=== PATIENT | female | born 1975 | race African-American/Black ===

== ENCOUNTER 2024-08-15 05:16 | Emergency (ER) | payer BC, OTHER ==
[~2024-08-15] VITALS: Ht 165.1 cm; Wt 81.0 kg
[~2024-08-15 05:16] MED LIST: LEVO50TA PO; MIRA50TA PO
[2024-08-15 05:23] VITALS: O2SAT 99
[2024-08-15 05:24] VITALS: BP 100/43; PULSE 100; RESP 18; TEMP 36.9; O2SAT 100
[2024-08-15 05:51] LABS: BASOPHILS % 0.6 % (0.0-2.0); DIFFERENTIAL COMMENT 0; EOSINOPHILS % 0.2 % (0.0-5.0); HEMATOCRIT. 23.7 % (36.0-48.0); LYMPHOCYTES % 12.8 % (20.0-50.0); MEAN CORPUSCULAR HEMOGLOBIN 34.1 pg (28.0-32.0); MEAN CORPUSCULAR HGB CONC 33.7 g/dL (31.0-37.0); MEAN CORPUSCULAR VOLUME 101.3 fL (81.0-99.0); MEAN PLATELET VOLUME 8.5 fl (7.4-10.4); MONOCYTES % 10.3 % (2.0-8.0); NEUTROPHILS % 76.1 % (40.0-76.0); PLATELET 325 x1000/uL (130-400); RED BLOOD CELL COUNT 2.34 mill/uL (4.2-5.4); RED CELL DISTRIBUTION WIDTH 16.2 % (11.6-14.6); WHITE BLOOD COUNT 11.9 x1000/uL (4.5-11.0)
[2024-08-15 06:10] LABS: CHLORIDE 101 mEq/L (98-107); POTASSIUM 3.8 mEq/L (3.5-5.1); SODIUM 136 mEq/L (136-145)
[2024-08-15 06:12] LABS: CALCIUM 7.9 mg/dL (8.7-10.4); CARBON DIOXIDE 26 mEq/L (21-32)
[2024-08-15 06:17] LABS: CREATININE 1.3 mg/dL (0.6-1.0); GLUCOSE 89 mg/dL (70-105); UREA NITROGEN BLOOD 17 mg/dL (9-23)
[2024-08-15 06:19] LABS: ALANINE AMINOTRANSFERASE 33 IU/L (10-49); ALBUMIN 2.7 g/dL (3.2-4.8); ASPARTATE AMINOTRANSFERASE 155 IU/L (<34); BILIRUBIN DIRECT 2.3 mg/dL (<=3.0)
[2024-08-15 06:20] LABS: BILIRUBIN TOTAL 3.7 mg/dL (0.1-1.0); PROTEIN TOTAL 6.3 g/dL (6.0-8.3)
[2024-08-15 08:30] VITALS: TEMP 97.7
[2024-08-15] MEDS: BENZONATATE 100MG CAPSULE PO ONE (08:30)
[2024-08-15] MEDS: ACETAMINOPHEN 325MG TABLET PO ONE (08:30)
[2024-08-15] MEDS ORDERED: ALBU90AE INH (09:23)
== END 2024-08-15 09:45 | disposition home or self-care (01) ==
LOC: ER 05:16
DX: R10.9 Unspecified abdominal pain (principal); R05.9 Cough, unspecified; E03.9 Hypothyroidism, unspecified; E11.9 Type 2 diabetes mellitus without complications; Z88.5 Allergy status to narcotic agent; Z98.84 Bariatric surgery status; Z98.890 Other specified postprocedural states
CPT/HCPCS: 36415; 71045; 80048; 80076; 85025; 99284

== ENCOUNTER 2024-08-21 04:29 | Emergency (ER) | payer BC, OTHER ==
[~2024-08-21] VITALS: Ht 165.1 cm; Wt 86.3 kg
[~2024-08-21 04:29] MED LIST changes: +ALBU90AE INH
[2024-08-21 04:42] VITALS: O2SAT 100
[2024-08-21 05:31] LABS: BASOPHILS % 0.8 % (0.0-2.0); EOSINOPHILS % 0.7 % (0.0-5.0); HEMATOCRIT. 25.7 % (36.0-48.0); HEMOGLOBIN. 8.8 g/dL (12.0-16.0); LYMPHOCYTES % 17.4 % (20.0-50.0); MEAN CORPUSCULAR HEMOGLOBIN 34.1 pg (28.0-32.0); MEAN CORPUSCULAR HGB CONC 34.2 g/dL (31.0-37.0); MEAN CORPUSCULAR VOLUME 99.7 fL (81.0-99.0); MEAN PLATELET VOLUME 7.6 fl (7.4-10.4); MONOCYTES % 8.1 % (2.0-8.0); PLATELET 514 x1000/uL (130-400); RED BLOOD CELL COUNT 2.58 mill/uL (4.2-5.4); RED CELL DISTRIBUTION WIDTH 16.8 % (11.6-14.6); WHITE BLOOD COUNT 8.2 x1000/uL (4.5-11.0)
[2024-08-21 05:49] LABS: CHLORIDE 105 mEq/L (98-107); POTASSIUM 3.5 mEq/L (3.5-5.1); SODIUM 142 mEq/L (136-145)
[2024-08-21 05:50] LABS: CARBON DIOXIDE 27 mEq/L (21-32)
[2024-08-21 05:51] LABS: CALCIUM 8.3 mg/dL (8.7-10.4)
[2024-08-21 05:55] LABS: CREATININE 1.2 mg/dL (0.6-1.0); GLUCOSE 77 mg/dL (70-105); UREA NITROGEN BLOOD 13 mg/dL (9-23)
[2024-08-21 05:57] LABS: ALANINE AMINOTRANSFERASE 28 IU/L (10-49); ALBUMIN 2.8 g/dL (3.2-4.8); ASPARTATE AMINOTRANSFERASE 94 IU/L (<34)
[2024-08-21 05:58] LABS: BILIRUBIN DIRECT 1.2 mg/dL (<=3.0); BILIRUBIN TOTAL 2.4 mg/dL (0.1-1.0); PROTEIN TOTAL 7.2 g/dL (6.0-8.3)
[2024-08-21 06:21] LABS: TROPONIN I HIGH SENSITIVITY < 4 ng/L (3.0-34)
[2024-08-21] MEDS: IBUPROFEN 400MG TABLET PO ONE (06:23)
[2024-08-21 08:36] LABS: CLARITY URINE TURBID (CLEAR); COLOR URINE DARK YELLOW (YELLOW); GLUCOSE URINE NEGATIVE (NEGATIVE); KETONES URINE TRACE (NEGATIVE); LEUKOCYTE ESTERASE URINE 2+ (NEGATIVE); NITRITE URINE POSITIVE (NEGATIVE); OCCULT BLOOD URINE 3+ (NEGATIVE); PH URINE 5.5 (4.5-8.0); PROTEIN URINE 2+ (NEGATIVE); SPECIFIC GRAVITY URINE 1.025 (1.005-1.030)
[2024-08-21 08:49] LABS: HYALINE CASTS URINE 0-5 /lpf; SQUAMOUS EPITHELIAL CELL URINE 3+ /lpf (RARE/1+); WBC URINE 25-50 /hpf (0-2)
[2024-08-21 08:50] LABS: BACTERIA URINE 4+
[2024-08-21 08:51] LABS: RBC URINE 15-25 /hpf (0-2)
[2024-08-21] MEDS ORDERED: TOPUD PO (09:10)
[2024-08-21 09:29] VITALS: BP 105/68; PULSE 98; RESP 18; TEMP 37.1; O2SAT 100
== END 2024-08-21 09:31 | disposition home or self-care (01) ==
LOC: ER 04:29
DX: S30.1XXA Contusion of abdominal wall, initial encounter (principal); H15.89 Other disorders of sclera; E03.9 Hypothyroidism, unspecified; E11.9 Type 2 diabetes mellitus without complications; K21.9 Gastro-esophageal reflux disease without esophagitis; Z79.899 Other long term (current) drug therapy; Z88.5 Allergy status to narcotic agent; Z90.49 Acquired absence of other specified parts of digestive tract; Z98.84 Bariatric surgery status; X58.XXXA Exposure to other specified factors, initial encounter; Y93.89 Activity, other specified; Y92.89 Other specified places as the place of occurrence of the external cause; Y99.8 Other external cause status
CPT/HCPCS: 36415; 71045; 74176; 80048; 80076; 81003; 81025; 83880; 84484; 85025; 93005; 99284; 99285